=== PATIENT | female | born 2000 | race Caucasian/White ===

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

== ENCOUNTER 2023-02-22 13:48 | Emergency (ER) | payer OTHER ==
[2023-02-22 13:56] VITALS: BP 135/87; PULSE 86; RESP 16; TEMP 98.1; BMI 30.2
== END 2023-02-22 14:38 | disposition home or self-care (01) ==
LOC: JERFT 13:48
DX: Z48.02 Encounter for removal of sutures (principal)
CPT/HCPCS: 99281-25

== ENCOUNTER 2023-03-02 14:33 | Emergency (ER) | payer OTHER ==
[2023-03-02 14:47] VITALS: BP 112/82; PULSE 106; RESP 18; TEMP 98; BMI 30.2
== END 2023-03-02 16:05 | disposition home or self-care (01) ==
LOC: JERFT 14:33
DX: Z48.00 Encounter for change or removal of nonsurgical wound dressing (principal)
CPT/HCPCS: 99281-25